=== PATIENT | female | born 1990 | race Caucasian/White ===

== ENCOUNTER 2019-02-14 18:26 | Emergency (ER) | payer SELFPAY ==
[~2019-02-14] VITALS: Ht 170.2 cm; Wt 72.7 kg
[2019-02-14 18:43] VITALS: BP 139/93
[2019-02-14] MEDS ORDERED: LIDOcaine 1% w/epiNEPHrine 1:200,000 30ml vial IM ONE (19:15)
[2019-02-14] MEDS ORDERED: TETanus/Pertussis (Acell)/Diphther VAC/PF (Tdap-Adult) 0.5ml syringe IM ONE (19:15)
[2019-02-14] MEDS ORDERED: bacitracin 15gm ointment TP ONE (20:35)
[2019-02-14] MEDS ORDERED: HYDR-3965 PO (20:36)
== END 2019-02-14 21:00 | disposition home or self-care (01) ==
LOC: ER 18:26
DX: S81.811A Laceration without foreign body, right lower leg, initial encounter (principal); S91.111A Laceration without foreign body of right great toe without damage to nail, initial encounter; W45.8XXA Other foreign body or object entering through skin, initial encounter; Y93.39 Activity, other involving climbing, rappelling and jumping off; Y92.89 Other specified places as the place of occurrence of the external cause; Y99.9 Unspecified external cause status
CPT/HCPCS: 12004; 90471; 99284

== ENCOUNTER 2019-02-19 09:35 | Emergency (ER) | payer SELFPAY ==
[~2019-02-19] VITALS: Ht 170.2 cm; Wt 0.7 kg
[2019-02-19 09:50] VITALS: BP 129/96
== END 2019-02-19 10:27 | disposition home or self-care (01) ==
LOC: ER 09:36
DX: S81.811D Laceration without foreign body, right lower leg, subsequent encounter (principal); S91.111D Laceration without foreign body of right great toe without damage to nail, subsequent encounter; W45.8XXD Other foreign body or object entering through skin, subsequent encounter
CPT/HCPCS: 99282

== ENCOUNTER 2025-02-10 18:34 | Inpatient (IN) | payer OTHER ==
[~2025-02-10] VITALS: Ht 170.2 cm; Wt 102.6 kg
--- NOTE | 2025-02-10 19:31 | Physician Documentation ---
History of Present Illness ~ Chief Complaint: Abdominal Pain Stated Complaint: SWELLING ABDOMINAL Time Seen by MD: 19:19 Mode of Arrival: POV HPI Patient presents to the emergency room for evaluation of abdominal distention and yellowing of skin. She reports that symptoms began a proximally three weeks ago. She has been taking some Tylenol for her discomfort along with some ibuprofen. Patient endorses drinking significant amount of alcohol daily and has been trying to taper off the last few weeks but states she continues to drank at nights a proximally 10 shots. She has noted alternating stool colors from yellow to dark brown. No problems urinating. She denies history of hepatitis or past medical history aside from history of ovarian cysts and col itis. Medication Reconciliation Allergies: Coded Allergies: No Known Allergies (Unverified , 02/10/25) Past Medical History Past Medical History: No Pertinent History Past Surgical History: noncontributory Drug Use: none Lives with: Family Lives In: Home Review of Systems ROS All review of systems negative except as per HPI Physical Exam Vital Signs: Temperature: 97.6, Source: Temporal, Heart Rate: 155, Respiratory Rate: 16, BP: 144/105, Pulse Oximetry: 99, Weight: 87.150 Physical Exam General: Patient is awake, alert, oriented x4 in no acute distress, jaundice Head: Normocephalic and atraumatic. Eyes: Scleral icterus noted. EOMI. PERRL. ENT: Mucous membranes moist. Neck: Supple, trachea is midline. Chest: Clear to auscultation bilaterally without rales, rhonchi, or wheezes. There is no accessory muscle use or retractions. Cardiac: Tachycardic and regular without murmurs, gallops, or rubs. Abd: Soft, noted distention with diffuse abdominal fullness and discomfort with palpation. No peritonitis Progress Results/Orders Results/Orders Orders - DARNELL HARRINGTON MD Electrocardiogram (02/10/25 ) Ct Abdomen Pelvis (02/10/25 19:21) Ultrasound Of Abdomen (02/10/25 19:21) Culture Blood (02/10/25 21:49) Page Hospitalist (02/10/25 23:50) Fill Out Med Reconciliation (02/10/25 23:50) Completed Orders - DARNELL HARRINGTON MD Hcg, Ur Ql (02/10/25 18:43) Cbc/Diff (02/10/25 18:43) BMP (02/10/25 18:43) Lipase (02/10/25 18:43) CMP (02/10/25 18:43) Procalcitonin (02/10/25 19:20) Ct Abdomen Pelvis (02/10/25 19:21) Ultrasound Of Abdomen (02/10/25 19:21) Ethanol (02/10/25 18:43) Thiamine Inj. (Thiamine Inj.) (02/10/25 19:35) Normal Saline 1000ml (0.9% Sodium Chlori (02/10/25 19:35) Acetaminophen (02/10/25 18:43) Ammonia (02/10/25 19:47) Man Diff (02/10/25 18:52) Ua W/Microscopic, Cult If Ind (02/10/25 20:29) Piperacillin/Tazo 3.375gm/50ml (Zosyn 3. (02/10/25 21:35) Direct Bili (02/10/25 18:52) Lacticsepsis (02/10/25 21:49) Morphine 4mg/Ml Inj. (Morphine Inj.) (02/10/25 22:00) Lactic,2hr (02/10/25 23:34) Medications Received in ER Medications (Trade) Dose Ordered Sig/Dick Route PRN Reason Start Time Stop Time Status Last Admin Dose Admin (thiamine inj.) 100 mg ONCE ONCE IV 02/10/25 19:35 02/10/25 19:36 DC 02/10/25 19:52 100 MG Sodium Chloride 1,000 ml @ 1,000 mls/hr ONCE ONCE IV 02/10/25 19:35 02/10/25 20:34 DC 02/10/25 19:49 1,000 MLS/HR Piperacillin/ Tazobactam/ Dextrose 50 ml @ 100 mls/hr ONCE ONCE IV 02/10/25 21:35 02/10/25 22:04 DC 02/10/25 21:56 100 MLS/HR (morphine inj.) 4 mg ONCE ONCE IV 02/10/25 22:00 02/10/25 22:01 DC 02/10/25 22:18 4 MG ([place] 10/325mg tab) 1 tab Q4H PRN PO SEVERE PAIN 7-10 02/11/25 00:35 02/11/25 01:01 1 TAB Sodium Chloride 1,000 ml @ 50 mls/hr Q20H IV 02/11/25 00:35 02/11/25 01:04 50 MLS/HR Vital Signs 02/10/25 02/10/25 02/10/25 02/10/25 18:40 19:04 19:56 21:33 Temp 97.6 Pulse 155 128 136 Resp 15 16 18 18 B/P (MAP) 144/105 134/84 (101) 144/83 (103) Pulse Ox 99 98 98 02/10/25 02/11/25 23:07 00:18 Pulse 135 138 Resp 16 16 B/P (MAP) 142/88 (106) 122/84 (97) Pulse Ox 97 98 Laboratory Tests Test 02/10/25 18:52 02/10/25 19:53 02/10/25 20:29 02/10/25 22:08 White Blood Count 32.9 *H Red Blood Count 3.28 L Hemoglobin 11.3 L Hematocrit 34.4 L Mean Corpuscular Volume 104.9 H Mean Corpuscular Hemoglobin 34.3 H Mean Corpuscular Hemoglobin Concent 32.7 L Red Cell Distribution Width 19.8 H Platelet Count 491 H Mean Platelet Volume 7.2 L Neutrophils (%) (Auto) 82.1 H Lymphocytes (%) (Auto) 11.6 L Monocytes (%) (Auto) 5.7 Eosinophils (%) (Auto) 0.2 Basophils (%) (Auto) 0.4 Neutrophils # (Auto) 27.0 H Lymphocytes # (Auto) 3.8 Monocytes # (Auto) 1.9 H Eosinophils # (Auto) 0.1 Basophils # (Auto) 0.1 CBC Comment Differential Total Cells Counted 100 Neutrophils % (Manual) 55 Band Neutrophils % 26 H Lymphocytes % (Manual) 12 L Monocytes % (Manual) 7 Platelet Estimate Increased Red Blood Cell Morphology Perf Polychromasia Few Hypochromasia 1+ Basophilic Stippling Anisocytosis 1+ Macrocytosis 1+ Target Cells 1+ Stomatocytes 1+ Sodium Level 130 L Potassium Level 3.2 L Chloride Level 92 L Carbon Dioxide Level 27.0 Anion Gap 11 Blood Urea Nitrogen 2 L Creatinine 0.59 Estimated GFR/1.73 m2 > 90 BUN/Creatinine Ratio 3.4 L Glucose Level 96 Calcium Level 7.9 L Total Bilirubin 7.2 H Direct Bilirubin 6.0 H Aspartate Amino Transf (AST/SGOT) 179 H Alanine Aminotransferase (ALT/SGPT) 50 Alkaline Phosphatase 537 H Total Protein 6.9 Albumin 1.6 L Globulin 5.3 H Albumin/Globulin Ratio 0.3 L Lipase 55 Procalcitonin 0.68 H Chemistry Comments Acetaminophen Level < 2.0 L Ethyl Alcohol Level 154 H Ammonia < 10 L Urine Specimen Description Cln catch midstream Urine Color Shyla Urine Clarity Clear Urine pH 6.5 Urine Specific [place] <=1.005 Urine Protein Trace Urine Glucose (UA) 100 H Urine Ketones Negative Urine Occult Blood Negative Urine Nitrite Negative Urine Bilirubin Large Urine Urobilinogen 4.0 H Urine Leukocyte Esterase Negative Urine RBC 0-2 Urine WBC 0-4 Urine Squamous Epithelial Cells Many Urine Transitional Epithelial Cells Few Urine Renal Cells Urine Bacteria 1+ Urine Mucus Few Urine Culture Indicated Not ind Volume Urine Centrifuged 10 ml Urine HCG, Qualitative Negative Urine Comment Lactic Acid Level 2.2 H Test 02/11/25 00:01 Lactic Acid Level 1.5 Microbiology Date/Time Source Procedure Growth Status 02/10/25 22:08 Blood Arm Left Blood Culture - Preliminary NEGATIVE (LESS THAN 24 HOURS) Resulted EKG/XRAY/CT/US/VASC/MRI EKG : Additional Comment EKG interpreted by myself shows time of 184, rate 149, sinus tachycardia, normal axis, no ST changes Medical Decision Making Findings Patient presented to the emergency room with right-sided abdominal pain as per HPI. Differentials include but are not limited to cholecystitis pancreatitis diverticulitis kidney stone therefore emergent labs and imaging indicated. Noted elevation of bilirubin and that has concern for possible obstructive process therefore ultrasound was ordered which showed no enlarged common bile duct and he had not feel patient is suffering from ascending cholangitis or other acute cholecystitis given ultrasound findings. IV antibiotics initiated. Consideration of spontaneous bacterial peritonitis however given ultrasound findings I do not believe this is the case. Departure Disposition: HOME / SELF CARE / HOMELESS Impression: Primary Impression: Acute cholecystitis Condition: Guarded Referrals: NO PRIMARY CARE PROVIDER (PCP) Signature Scribe Signature: No scribe Attestation: The note accurately reflects work and decisions made by me.Darnell Harrington MD 02/11/25 01:29 DARNELL HARRINGTON MD Feb 10, 2025 19:31
[2025-02-10 19:44] LABS: MEAN PLATELET VOLUME 7.2 FL (7.4-10.4); RED CELL DISTRIBUTION WIDTH 19.8 % (11.5-14.5)
[2025-02-10] MEDS: normal saline 1000ml 1,000 ML IV ONE (19:49)
[2025-02-10] MEDS: thiamine 100mg/ml 2ml inj. IV ONE (19:52)
[2025-02-10 20:09] LABS: BANDS% (MANUAL) 26 % (0-10); LYMPHOCYTES % (MANUAL) 12 % (21-51); MONOCYTES % (MANUAL) 7 % (2-12); NEUTROPHILS % (MANUAL) 55 % (42-75); PLATELET ESTIMATE INCREASED
[2025-02-10 20:24] LABS: CREATININE 0.59 MG/DL (0.40-0.90); ETHANOL 154 MG/DL (<10); TOTAL CARBON DIOXIDE 27.0 MMOL/L (24-32); eCRCL 132 ML/MIN; eGFR > 90 ML/MIN
[2025-02-10 20:52] LABS: LEUKOCYTE ESTERASE ,URINE NEGATIVE (Neg); NITRITES, URINE NEGATIVE (Neg); OCCULT BLOOD,URINE NEGATIVE (Neg)
[2025-02-10 20:53] LABS: UA COLLECTION TYPE CLN CATCH MIDSTREAM
[2025-02-10 20:54] LABS: URINE HCG NEGATIVE (NEG)
[2025-02-10 20:58] LABS: SQUAMOUS EPITHELIAL CELL,UR MANY /LPF (FEW)
[2025-02-10 20:59] LABS: MUCUS STRANDS FEW /LPF (Neg)
--- NOTE | 2025-02-10 21:23 | RADIOLOGY REPORT ---
EXAM: CT CT ABDOMEN PELVIS HISTORY: abd pain TECHNIQUE: Volumetric multidetector CT images of the abdomen and pelvis were obtained after the admin istration of intravenous contrast. All CT scans at this facility use dose modulation, iterative recon struction, and/or weight based dosing when appropriate to reduce radiation dose to as low as reasonab ly achievable. COMPARISON: None FINDINGS: [LOWER CHEST]: The partially visualized lung bases are clear without a pleural effusion. [LIVER]: Hepatomegaly. Diffuse hepatic steatosis [GALLBLADDER AND BILIARY TREE]: No cholelithiasis. [SPLEEN]: Unremarkable. [PANCREAS]: Unremarkable. [ADRENAL GLANDS]: Unremarkable [KIDNEYS]: No hydronephrosis. No nephroureterolithiasis. No suspicious focal lesion. [BLADDER]: Decompressed [REPRODUCTIVE ORGANS]: Unremarkable. [BOWEL/MESENTERY]: Stomach is normal. No CT evidence of bowel obstruction. normal appendix. Colon is decompressed. Question submucosal fat deposition however may be exaggerated along the colon secondary to decompression. [ASCITES]: Small volume ascites. Mesenteric congestion [LYMPHADENOPATHY]: No pathologically enlarged lymph nodes by CT size criteria [VASCULATURE]: No aneurysmal dilatation. [ABDOMINAL WALL]: Unremarkable. [MUSCULOSKELETAL]: No acute fracture or aggressive focal osseous lesion. IMPRESSION: 1. Hepatomegaly with hepatic steatosis in appearance of third-spacing as manifested by pericholecysti c/intramural edema and ascites. 2. Correlate with clinical exam and laboratory values for liver dysfunction 3. Colon is diffusely decompressed with submucosal fat deposition, which may be exaggerated secondary to decompression however chronic inflammation not excluded.
[2025-02-10] MEDS: piperacillin/tazo 3.375gm/50ml 50 ML IV ONE (21:56)
[2025-02-10] MEDS: morphine 4 MG/ML inj SYRINge IV ONE (22:18)
[2025-02-11] VITALS (9 sets, daily range): BP systolic 100–135; BP diastolic 57–80; PULSE 93–150; RESP 16–20; TEMP 97.6–98.6; O2SAT 97–99
--- NOTE | 2025-02-11 00:31 | RADIOLOGY REPORT ---
INDICATION: abd pain TECHNIQUE: Multiple real-time sonographic images were obtained of the right upper quadrant. COMPARISON: Same day CT abdomen/pelvis FINDINGS: The liver demonstrates homogeneously increased echogenicity without focal mass lesions. The liver me asures 24.7 cm. There is no intrahepatic or extrahepatic ductal dilatation. The common duct measures 5 mm. The gallbladder not distended. No visualized stone or sludge. The gallbladder wall measures 5 mm and is within normal limits. Reportedly positive sonographic Hanson's sign. The right kidney measures 10.4 cm. No visualized hydronephrosis, stone, or lesion. The pancreas is not well visualized due to overlying bowel gas. Moderate circumferential perihepatic ascites. IMPRESSION: 1. Gallbladder wall thickening and reportedly positive sonographic Hanson's sign, however no evidence of biliary stones/sludge and nondistended gallbladder. Findings are most likely due to congestive h epatopathy as seen on comparison CT, and acute cholecystitis is less favored than alternative etiolog ies for right upper quadrant pain. 2. Hepatic steatosis/fibrosis.
[2025-02-11] MEDS ORDERED: magnesium Cl slow-release 64mg tablet PO PRN (00:35)
[2025-02-11] MEDS ORDERED: potassium Cl 20 mEq SR tablet PO PRN (00:35)
[2025-02-11] MEDS ORDERED: potassium Cl 40MEQ/1/2NS 520ml 520 ML IV PRN (00:35)
[2025-02-11] MEDS ORDERED: magnesium sulf-water 4G/100mL 100 ML IV PRN (00:35)
[2025-02-11] MEDS ORDERED: magnesium sulf-water 2g/50mL 50 ML IV PRN (00:35)
[2025-02-11] MEDS ORDERED: ondansetron/PF 4mg/2ml inj IV PRN (00:35)
[2025-02-11] MEDS ORDERED: dextrose 50%-water 50ml dispensing syringe IV PRN (00:35)
[2025-02-11] MEDS ORDERED: magnesium hydroxide 30ml (MOM) UD suspension PO PRN (00:35)
[2025-02-11] MEDS ORDERED: mag hydrox/Alum hydrox/simeth 30ml oral suspension PO PRN (00:35)
[2025-02-11] MEDS: HYDROcodone/acetaminophen 10/325mg tab PO PRN (01:01)
[2025-02-11] MEDS: normal saline 1000ml 1,000 ML IV SCH (01:04)
--- NOTE | 2025-02-11 01:18 | HISTORY AND PHYSICAL-Residence ---
History & Physical Providers to CC Resident Creating Document: RIAN SAUCEDA RES ~ History of Present Illness Reason for Admit\Complaint: Abdominal pain and distention History of Present Illness This is a 35-year-old female with past medical history alcohol use disorder (1300 mL of vodka a day) who came to the ER with complaints of abdominal pain and bloating since three weeks. She explained that all of these symptoms started after she got back on her alcohol consumption. She experienced progressive abdominal bloating in the past 3 weeks such that her abdomen is twice the size now associated with bilateral pitting pedal edema. Associated with abdominal pain in the epigastric and right upper quadrant region. She rates the pain as 8/10, dull ache, nonradiating, associated with medication, no aggravating factors with food consumption. She had to change her diet from solid to liquid in view of progressive distention and nausea. She has also noticed yellowish discoloration of her sclera and skin since the past 3 weeks. No symptoms of vomiting, diarrhea/constipation, change in the color of the stools, no urinary symptoms, not on any control, no weight loss. Allergies: Coded Allergies: No Known Allergies (Unverified , 02/10/25) Home Medications Home Medications Active Past Medical History Past Medical History Nothing significant Past Surgical History Surgical History Comment None Past Social History Smoking: Quit greater than 1 year (Quit smoking more than 10 years ago. 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) Domestic Violence: Neg ROS Constitutional: Reports: weakness Eyes: Reports: no symptoms reported ENT: Reports: no symptoms reported Respiratory: Reports: pain with breathing Cardiovascular: Reports: no symptoms reported Gastrointestinal: Reports: abdomen distended, abdominal pain, nausea Genitourinary: Reports: no symptoms reported Female Genitalia: Reports: no reported symptoms Neurological: Reports: no symptoms reported Musculoskeletal: Reports: no symptoms reported Integumentary: Reports: no symptoms reported Allergic/Immunologic: Reports: no symptoms reported Hematologic/Lymphatic: Reports: no symptoms reported Endocrine: Reports: no symptoms reported Psychiatric: Reports: no symptoms reported Unable to obtain: altered mental status Exam Vitals: Vital Signs Date Time Temp Pulse Resp B/P (MAP) Pulse Ox O2 Delivery O2 Flow Rate FiO2 02/11/25 00:18 138 16 122/84 (97) 98 02/10/25 18:40 97.6 General: General: Well alert, well oriented, not confused, not agitated, not in acute distress, well cooperated during the physical. HEENT: Conjunctive are pink, icteric sclera, pupil is equal in both sides, reactive to light, no ear discharge, no pharyngeal erythema or an edema. Neck: Supple, no JVD, no lymphadenopathy and thyromegaly. Chest: Equal air entry on both lungs, no added sounds, no wheeze. Cardiovascular: S1-S2 regular sinus rhythm and, regular rate, no gallops, no rubs, no murmurs Abdomen: Abdomen distended, rigid on palpation, tenderness in epigastric and right upper quadrant on deep palpation, Bowel sounds present on auscultation. No distended vein. Extremities: No obvious deformities, bilateral 2+ pitting edema bilaterally, capillary refill intact, peripheral pulsations are intact on both sides Central Nervous System: No focal neurological deficits, no motor or sensory weakness in all 4 extremities, could move all 4 extremities, 2+ deep tendon reflexes, negative Babinski. Musculoskeletal: No joint swelling, deformities, inflammations, and no scoliosis and back tenderness Skin: Warm and dry. Diagnostic Data Last Recorded Lab Results: 02/10/25185102/10/251851 Counseling Services Smoking & Tobacco Cessation: N/A Advance Care Planning Advanced Care plannin - 30 Minutes (Full code) Additional Plan Assessment: This is a 35-year-old female with no significant past medical history who came to the ER with complaints of abdominal pain and bloating since three weeks. She explained that all of these symptoms started after she got back on her alcohol consumption. Plan: Acalculous cholecystitis Right upper quadrant pain, abdominal distention, yellow discoloration of sclerae. Patient met severe sepsis criteria (heart rate> 90, WBC> 05791, lactic acidosis, source of infection) Vitals: Heart rate 140s, due to pain. Blood pressure 120/80 WBC 32.9, procalcitonin 0.68, lactic acid 2.2 Ultrasound of abdomen: 1. Gallbladder wall thickening and reportedly positive sonographic Hanson's sign, however no evidence of biliary stones/sludge and nondistended gallbladder. Findings are most likely due to congestive hepatopathy as seen on comparison CT, and acute cholecystitis is less favored than alternative etiologies for right upper quadrant pain. 2. Hepatic steatosis/fibrosis. Abdomen and pelvis CT:1. Hepatomegaly with hepatic steatosis in appearance of third-spacing as manifested by pericholecystic/intramural edema and ascites. 2. Correlate with clinical exam and laboratory values for liver dysfunction 3. Colon is diffusely decompressed with submucosal fat deposition, which may be exaggerated secondary to decompression however chronic inflammation not excluded. Alkaline phosphatase 537, AST 179, ALT 50 Plan: Ordered CRP, ESR, lipid panel, hemoglobin A1c Hydration with 100 mL/hour IV fluids Started Zosyn 4.5 g IV q.8h Surgery opinion to be taken tomorrow Pain controlled with morphine/[place] p.r.n. Acute alcoholic steatohepatitis History of heavy alcohol use disorder AST > ALT (ratio > 1.5), elevated bilirubin -7.2 and alk-phos, albumin 1.5 Marked leukocytosis, macrocytic anemia Ultrasound and CT scan shows hepatitis Meets criteria for alcoholic hepatitis PT 13.1, INR 1.3 Og's Discriminant Functin (MDF) -12.3 and MELD-22 Started prednisolone 40 mg p.o. daily Consider GI consultation in the morning. 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 Code status: Full code DVT prophylaxis: SCDs Analgesia/sedation: Morphine/[place] p.r.n. Line/tube: PIV GI prophylaxis: Protonix Nutrition: Regular diet PT: Ordered. Prognosis: Guarded Disposition: Admit to estrada Sauceda MD PGY1, Internal Medicine [facility] Case reviewed and discussed with SS: History of heavy alcohol use disorder AST > ALT (ratio > 1.5), elevated bilirubin and alk-phos, albumin 1.5 Marked leukocytosis, macrocytic anemia U/S; hepatic steatosis Meets criteria for alcoholic hepatitis Ordered coagulation profile; INR, PT. Calculate Maddrey's Discriminant Functin (MDF) and MELD; consider glucocorticoid therapy/methylprednisolone if score more than 20 Tera Morton Internal Medicine Resident Patient seen and evaluated using HIPAA compliant audio visual aid. I agree with the assessment and plan by the resident. Critical Care time 60 mins Neelima Sotelo MD Critical Care Date of Service: Feb 11, 2025 Billing Provider: NEELIMA SOTELO MD, SHIVANI, [facility] Feb 11, 2025 01:18 TERA MORTON, JB Feb 11, 2025 02:14 NEELIMA SOTELO MD Feb 14, 2025 19:32
[2025-02-11] MEDS: potassium Cl 20 mEq SR tablet PO PRN (02:34)
[2025-02-11 02:35] LABS: OSMOLALITY 276 MOSM/K (280-300)
[2025-02-11 02:38] LABS: LDL CHOLESTEROL 250 MG/DL (50-100)
[2025-02-11 02:39] LABS: CHOL/HDL RATIO 24.7 (0.00-4.99)
[2025-02-11 02:53] LABS: % IRON SATURATION 28 % (11-46)
[2025-02-11 02:57] LABS: APTT 30 SECONDS (22-32); INR 1.3 INR
[2025-02-11] MEDS: albumin (human) 25% 100 ML IV solution IV ONE (03:03)
[2025-02-11] MEDS: diazepam inj 5 MG/ML inj. IV PRN (03:14)
[2025-02-11] MEDS ORDERED: IBUP-1986 PO (03:36)
[2025-02-11] MEDS ORDERED: ACET-2615 PO (03:36)
[2025-02-11] MEDS ORDERED: SIME125C43 PO (03:36)
[2025-02-11] MEDS ORDERED: DIPH-964 PO (03:36)
[2025-02-11 04:11] LABS: BF RBC COUNT 153 /CU MM; BF WBC COUNT 131 /CU MM (0-1000); BFSOURCE PERITONEAL FLD; BFVOLUME 800 ML
--- NOTE | 2025-02-11 05:41 | ELECTROCARDIOGRAPH REPORT ---
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
[2025-02-11] MEDS: pantoprazole 40mg Tablet.DR PO SCH (07:11)
[2025-02-11] MEDS: docusate sod 100mg capsule PO SCH (07:12)
[2025-02-11] MEDS: folic acid 1mg/0.2ml inj IV SCH (07:20)
[2025-02-11] MEDS: thiamine 100mg/ml 2ml inj. IV SCH (07:20)
[2025-02-11] MEDS: piperacillin/tazo 4.5gm/100ml 100 ML IV SCH (07:20)
[2025-02-11] MEDS: K and/or MAG REPLACEMENT MC SCH (08:00)
[2025-02-11] MEDS ORDERED: prednisoLONE 15mg/5ml oral solution 5ml cup PO SCH (08:00)
[2025-02-11 09:03] LABS: MEAN PLATELET VOLUME 7.2 FL (7.4-10.4); RED CELL DISTRIBUTION WIDTH 19.0 % (11.5-14.5)
[2025-02-11 09:20] LABS: CREATININE 0.52 MG/DL (0.40-0.90); TOTAL CARBON DIOXIDE 28.3 MMOL/L (24-32); eCRCL 150 ML/MIN; eGFR > 90 ML/MIN
[2025-02-11 09:25] LABS: BANDS% (MANUAL) 17.0 % (0-10); LYMPHOCYTES % (MANUAL) 9.0 % (21-51); METAMYLEOCYTES% (MANUAL) 2.0 % (0-0); MONOCYTES % (MANUAL) 7.0 % (2-12); NEUTROPHILS % (MANUAL) 65.0 % (42-75)
[2025-02-11 09:28] LABS: PLATELET ESTIMATE NORMAL
[2025-02-11] MEDS: diazepam inj 5 MG/ML inj. IV ONE (09:30)
[2025-02-11 09:55] LABS: BFAPPEAR HAZY; BFCOLOR YELLOW; LYMPHOCYTES,BODY FLUID 19 %; MONOCYTES,BODY FLUID 68 %; NEUTROPHILS,BODY FLUID 13 %
[2025-02-11 09:56] LABS: BF MESOTHELIAL CELLS FEW
[2025-02-11] MEDS ORDERED: pantoprazole 40MG/NS 100ML BAG 100 ML IV SCH (20:00)
--- NOTE | 2025-02-11 20:06 | PROGRESS NOTE ---
Daily Progress Note Providers to CC ~ Antibiotic Timeout Antibiotic Ordered?: Yes Subjective When I came onto service the patient has heart rate was in the 130s to 150s and had only received 5 mg of IV diazepam for several hours- I promptly gave the patient 10 mg of IV diazepam and spoke to the patient's RN today and the heart rate now is improved and currently is 109. The patient is alert and oriented and a white blood cell count is downtrending. The patient does have significant abdominal distention however this is improved from the diagnostic paracentesis with 3 L were drained in the ED. Objective Vital Signs Date Time Temp Pulse Resp B/P (MAP) Pulse Ox O2 Delivery O2 Flow Rate FiO2 02/11/25 18:30 109 02/11/25 18:00 97.6 16 105/66 (79) 98 Room Air 02/11/25 03:39 0 21 Result Diagram: 02/11/25 0509 02/11/25 0509 Gen. No acute distress alert and oriented 4 Lungs clear to ascultation bilaterally, no wheezes rales or rhonchi appreciated Heart normal sinus rhythm no murmurs rubs or clicks noted Abdomen soft mildly distended, nontender, bowel sounds are normoactive Lower extremities no clubbing cyanosis, nor edema appreciated bilaterally Coagulation Studies Laboratory Tests Test 02/11/25 02:39 Prothrombin Time 13.1 SECONDS (9.0-12.0) H INR International Normalized Ratio 1.3 INR Activated Partial Thromboplast Time 30 SECONDS (22-32) Coagulation Comments Problem\Assessment\Plan Problems/Diagnosis: (1) Acute cholecystitis # severe alcohol withdrawal- # alcohol use disorder Improving with better management by nursing staff IV diazepam 5 mg every hour as needed IV lorazepam 2 mg every 15 minutes as needed P.o. lorazepam 2 mg every hour as needed Scheduled Librium 50 mg q.i.d.. Substance use navigator Landy Reddy consult is ordered # acute acalculous cholecystitis # sepsis secondary to cholecystitis IV Zosyn IV fluids are administered # acute alcoholic hepatitis On 40 mg of p.o. prednisone Monitor daily CMP # anemia of chronic disease # macrocytic anemia Transfuse if hemoglobin is below seven IV Protonix 40 mg b.i.d. Stool for Hemoccult # hypokalemia On potassium replacement protocol Monitor daily labs I spent 50 minutes of critical care time treating this patient on 02/11/2025 Date of Service: Feb 11, 2025 Billing Provider: DIDIER COLON DO Common Visit Codes: [id number] CARE 30-74 MIN DIDIER COLON DO Feb 11, 2025 20:05
[2025-02-12 05:50] LABS: MEAN PLATELET VOLUME 7.3 FL (7.4-10.4); RED CELL DISTRIBUTION WIDTH 19.4 % (11.5-14.5)
[2025-02-12 06:00] VITALS: BP 97/61; PULSE 104; RESP 16; TEMP 98.1; O2SAT 100
[2025-02-12 06:15] LABS: CREATININE 0.67 MG/DL (0.40-0.90); TOTAL CARBON DIOXIDE 28.4 MMOL/L (24-32); eCRCL 116 ML/MIN; eGFR > 90 ML/MIN
[2025-02-12 08:00] VITALS: RESP 16; O2SAT 100
[2025-02-12 10:00] VITALS: BP 110/68; PULSE 115; RESP 15; TEMP 97.6; O2SAT 98
[2025-02-12 11:11] LABS: HBSAG SCREEN Negative (Negative); HEP B CORE AB, IGM Negative (Negative); HEP B CORE AB, TOT Negative (Negative)
--- NOTE | 2025-02-12 17:33 | PROGRESS NOTE ---
Daily Progress Note Providers to CC ~ Antibiotic Timeout Antibiotic Ordered?: Yes Subjective The patient feels better today though her abdomen is getting more distended. Her liver function tests are improving in her DTs are improving as well as monitor by her vital signs the patient does not exhibit any tremors Objective Vital Signs Date Time Temp Pulse Resp B/P (MAP) Pulse Ox O2 Delivery O2 Flow Rate FiO2 02/12/25 10:00 97.6 115 15 110/68 (82) 98 Room Air 02/11/25 20:00 0.0 21 Result Diagram: 02/12/25 0505 02/12/25 0505 Gen. No acute distress alert and oriented 4 Lungs clear to ascultation bilaterally, no wheezes rales or rhonchi appreciated Heart normal sinus rhythm no murmurs rubs or clicks noted Abdomen soft mildly distended, nontender, bowel sounds are normoactive Lower extremities no clubbing cyanosis, nor edema appreciated bilaterally Coagulation Studies Laboratory Tests Test 02/11/25 02:39 Prothrombin Time 13.1 SECONDS (9.0-12.0) H INR International Normalized Ratio 1.3 INR Activated Partial Thromboplast Time 30 SECONDS (22-32) Coagulation Comments Problem\Assessment\Plan Problems/Diagnosis: (1) Acute cholecystitis # severe alcohol withdrawal- # alcohol use disorder Improving with better management by nursing staff IV diazepam 5 mg every hour as needed IV lorazepam 2 mg every 15 minutes as needed P.o. lorazepam 2 mg every hour as needed Scheduled Librium 50 mg q.i.d.. Substance use navigator Landy Reddy consult is ordered 02/12 DTs are improving vital signs are improving # acute acalculous cholecystitis # sepsis secondary to cholecystitis IV Zosyn IV fluids are administered 02/12 white blood cell count is downtrending # ascites # acute alcoholic hepatitis On 40 mg of p.o. prednisone Monitor daily CMP Status post diagnostic paracentesis in the ED with 3 L were drained 02/12 liver function tests are improving- will likely require serial paracentesis # anemia of chronic disease # macrocytic anemia Transfuse if hemoglobin is below seven IV Protonix 40 mg b.i.d. Stool for Hemoccult # hypokalemia On potassium replacement protocol Monitor daily labs I spent 50 minutes of critical care time treating this patient on 02/11/2025 Date of Service: Feb 12, 2025 Billing Provider: DIDIER COLON DO Common Visit Codes: [id number] INP/OBS CARE(HIGH) DIDIER COLON DO Feb 12, 2025 17:33
[2025-02-12 18:00] VITALS: BP 112/65; PULSE 97; RESP 16; TEMP 98.1; O2SAT 98
[2025-02-12 22:00] VITALS: BP 115/79; PULSE 111; RESP 16; TEMP 97.3; O2SAT 100
[2025-02-13] VITALS (8 sets, daily range): BP systolic 108–121; BP diastolic 62–67; PULSE 100–132; RESP 14–22; TEMP 97.2–98.1; O2SAT 98–100
[2025-02-13 06:22] LABS: MEAN PLATELET VOLUME 7.0 FL (7.4-10.4); RED CELL DISTRIBUTION WIDTH 20.4 % (11.5-14.5)
[2025-02-13 06:31] LABS: CREATININE 0.48 MG/DL (0.40-0.90); TOTAL CARBON DIOXIDE 27.7 MMOL/L (24-32); eCRCL 162 ML/MIN; eGFR > 90 ML/MIN
[2025-02-13 07:34] LABS: PLATELET ESTIMATE NORMAL
[2025-02-13] MEDS: diazepam inj 5 MG/ML inj. IV ONE ×2 (09:05→11:37)
[2025-02-13 09:20] LABS: OCCULT BLOOD STOOL NEGATIVE (Neg)
--- NOTE | 2025-02-13 17:41 | PROGRESS NOTE ---
Daily Progress Note Providers to CC ~ Antibiotic Timeout Antibiotic Ordered?: Yes Subjective The patient is abdomen is getting more distended and tender- the patient became tachycardic again today and required a couple of additional doses of IV diazepam I will increase the patient is scheduled Librium 200 mg q.i.d. Objective Vital Signs Date Time Temp Pulse Resp B/P (MAP) Pulse Ox O2 Delivery O2 Flow Rate FiO2 02/13/25 15:52 109 02/13/25 10:00 97.4 14 121/62 (81) 100 Room Air 02/12/25 20:00 0.0 21 Result Diagram: 02/13/25 0459 02/13/25 0503 Gen. No acute distress alert and oriented 4 Lungs clear to ascultation bilaterally, no wheezes rales or rhonchi appreciated Heart normal sinus rhythm no murmurs rubs or clicks noted Abdomen soft significantly distended, moderate to significant generalized tenderness, bowel sounds are normoactive Lower extremities no clubbing cyanosis, nor edema appreciated bilaterally Coagulation Studies Laboratory Tests Test 02/11/25 02:39 Prothrombin Time 13.1 SECONDS (9.0-12.0) H INR International Normalized Ratio 1.3 INR Activated Partial Thromboplast Time 30 SECONDS (22-32) Coagulation Comments Problem\Assessment\Plan Problems/Diagnosis: (1) Acute cholecystitis # severe alcohol withdrawal- # alcohol use disorder Improving with better management by nursing staff IV diazepam 5 mg every hour as needed IV lorazepam 2 mg every 15 minutes as needed P.o. lorazepam 2 mg every hour as needed Scheduled Librium 50 mg q.i.d.. Substance use navigator Landy Reddy consult is ordered 02/12 DTs are improving vital signs are improving 02/13 the patient required two doses of 10 mg IV diazepam today- increase Librium to 100 mg q.i.d. # acute acalculous cholecystitis # sepsis secondary to cholecystitis IV Zosyn IV fluids are administered 02/12 white blood cell count is downtrending # ascites # acute alcoholic hepatitis On 40 mg of p.o. prednisone Monitor daily CMP Status post diagnostic paracentesis in the ED with 3 L were drained 02/12 liver function tests are improving- will likely require serial paracentesis 02/13 ascites is worsening, we will order a therapeutic paracentesis if the patient remains hospitalized on 02/15/2025 when angio nurse is available to assist Dr. Monzon # anemia of chronic disease # macrocytic anemia Transfuse if hemoglobin is below seven IV Protonix 40 mg b.i.d. Stool for Hemoccult # hypokalemia On potassium replacement protocol Monitor daily labs I spent 50 minutes of critical care time treating this patient on 02/11/2025 Date of Service: Feb 13, 2025 Billing Provider: DIDIER COLON DO Common Visit Codes: [id number] INP/OBS CARE(HIGH) DIDIER COLON DO Feb 13, 2025 17:41
[2025-02-14 06:00] VITALS: BP 104/67; PULSE 94; RESP 16; TEMP 97.6; O2SAT 100
[2025-02-14 07:08] LABS: MEAN PLATELET VOLUME 7.1 FL (7.4-10.4); RED CELL DISTRIBUTION WIDTH 20.8 % (11.5-14.5)
[2025-02-14 07:14] LABS: CREATININE 0.59 MG/DL (0.40-0.90); TOTAL CARBON DIOXIDE 25.7 MMOL/L (24-32); eCRCL 132 ML/MIN; eGFR > 90 ML/MIN
[2025-02-14] MEDS ORDERED: potassium Cl 40MEQ/1/2NS 520ml 520 ML IV PRN ×2 (08:40→17:25)
[2025-02-14] MEDS ORDERED: potassium Cl 20 mEq SR tablet PO PRN ×3 (08:40→17:25)
[2025-02-14 08:51] LABS: BANDS% (MANUAL) 5.0 % (0-10); LYMPHOCYTES % (MANUAL) 2.0 % (21-51); MONOCYTES % (MANUAL) 1.0 % (2-12); NEUTROPHILS % (MANUAL) 92.0 % (42-75)
[2025-02-14 08:54] LABS: LARGE PLATELETS FEW
[2025-02-14 08:55] LABS: PLATELET ESTIMATE NORMAL
[2025-02-14 10:00] VITALS: BP 136/73; PULSE 72; RESP 15; TEMP 98.4; O2SAT 95
[2025-02-14] MEDS: potassium Cl 20 mEq SR tablet PO PRN (10:40)
[2025-02-14] MEDS ORDERED: magnesium sulf-water 2g/50mL 50 ML IV PRN (17:25)
[2025-02-14] MEDS ORDERED: magnesium sulf-water 4G/100mL 100 ML IV PRN (17:25)
--- NOTE | 2025-02-14 17:28 | PROGRESS NOTE ---
Daily Progress Note Providers to CC ~ Antibiotic Timeout Antibiotic Ordered?: Yes Subjective The patient's tachycardia and DTs are improved significantly with increasing Librium scheduled to 75 mg q.i.d.- the patient is white blood cell count however is up trending and her ascites is worsening as well as her abdominal discomfort. A therapeutic paracentesis is ordered for the a.m. Objective Vital Signs Date Time Temp Pulse Resp B/P (MAP) Pulse Ox O2 Delivery O2 Flow Rate FiO2 02/14/25 10:49 18 02/14/25 10:00 98.4 72 136/73 (94) 95 Room Air 02/12/25 20:00 0.0 21 Result Diagram: 02/14/25 0632 02/14/25 0632 Gen. No acute distress alert and oriented 4 Lungs clear to ascultation bilaterally, no wheezes rales or rhonchi appreciated Heart normal sinus rhythm no murmurs rubs or clicks noted Abdomen soft significantly distended, moderate to significant generalized tenderness, bowel sounds are normoactive Lower extremities no clubbing cyanosis, nor edema appreciated bilaterally Coagulation Studies Laboratory Tests Test 02/11/25 02:39 Prothrombin Time 13.1 SECONDS (9.0-12.0) H INR International Normalized Ratio 1.3 INR Activated Partial Thromboplast Time 30 SECONDS (22-32) Coagulation Comments Problem\Assessment\Plan Problems/Diagnosis: (1) Acute cholecystitis # severe alcohol withdrawal- # alcohol use disorder Improving with better management by nursing staff IV diazepam 5 mg every hour as needed IV lorazepam 2 mg every 15 minutes as needed P.o. lorazepam 2 mg every hour as needed Scheduled Librium 50 mg q.i.d.. Substance use navigator Landy Reddy consult is ordered 02/12 DTs are improving vital signs are improving 02/13 the patient required two doses of 10 mg IV diazepam today- increase Librium to 75 mg q.i.d. 02/14 the patient is DTs and vital signs are improved with increased Librium dosing. # acute acalculous cholecystitis # sepsis secondary to cholecystitis IV Zosyn IV fluids are administered 02/12 white blood cell count is downtrending 02/14 white blood cell count has a up trended however the patient is afebrile continue monitor daily CBC # ascites # acute alcoholic hepatitis On 40 mg of p.o. prednisone Monitor daily CMP Status post diagnostic paracentesis in the ED with 3 L were drained 02/12 liver function tests are improving- will likely require serial paracentesis 02/13 ascites is worsening, we will order a therapeutic paracentesis if the patient remains hospitalized on 02/15/2025 when angio nurse is available to assist Dr. Monzon 02/14 ascites continues to worsen- a therapeutic paracentesis is ordered for tomorrow # anemia of chronic disease # macrocytic anemia Transfuse if hemoglobin is below seven IV Protonix 40 mg b.i.d. Stool for Hemoccult 02/14 hemoglobin is improving continue monitor # hypokalemia On potassium replacement protocol Monitor daily labs I spent 50 minutes of critical care time treating this patient on 02/11/2025 Date of Service: Feb 14, 2025 Billing Provider: DIDIER COLON DO Common Visit Codes: [id number] INP/OBS CARE(HIGH) DIDIER COLON DO Feb 14, 2025 17:28
[2025-02-14 18:00] VITALS: BP 123/61; PULSE 76; RESP 15; TEMP 97.3; O2SAT 100
[2025-02-14] MEDS: lactose-reduced food (Ensure Enlive) - 237ml bottle PO SCH (18:52)
[2025-02-14 19:00] VITALS: O2SAT 14
[2025-02-14 20:00] VITALS: RESP 15; O2SAT 99
[2025-02-14] MEDS ORDERED: K and/or MAG REPLACEMENT MC SCH (20:00)
[2025-02-14 22:00] VITALS: BP 109/65; PULSE 104; RESP 15; TEMP 96.3; O2SAT 99
[2025-02-15 05:34] LABS: MEAN PLATELET VOLUME 7.0 FL (7.4-10.4); RED CELL DISTRIBUTION WIDTH 21.1 % (11.5-14.5)
[2025-02-15 06:00] VITALS: BP 108/63; PULSE 103; RESP 15; TEMP 97.2; O2SAT 99
[2025-02-15 06:07] LABS: CREATININE 0.66 MG/DL (0.40-0.90); TOTAL CARBON DIOXIDE 27.8 MMOL/L (24-32); eCRCL 118 ML/MIN; eGFR > 90 ML/MIN
--- NOTE | 2025-02-15 07:57 | RADIOLOGY REPORT ---
CHEST RADIOGRAPH Indication: sepsis Technique: Single frontal view of the chest was obtained COMPARISON: None FINDINGS: Lines and Tubes: None Lungs: Increased interstitial prominence. Low lung volumes. Pleura: No effusion. No pneumothorax. Cardiomediastinal contours: Unremarkable Bones: Unremarkable IMPRESSION: Increased interstital prominence. This may represent pulmonary vascular congestion and/or viral pneum onia. Clinical correlation advised.
[2025-02-15 08:00] VITALS: RESP 20
[2025-02-15 08:20] LABS: INR 1.3 INR
[2025-02-15 10:00] VITALS: BP 119/68; PULSE 134; RESP 29; TEMP 96.7; O2SAT 100
--- NOTE | 2025-02-15 11:18 | PROGRESS NOTE ---
Daily Progress Note Providers to CC ~ Antibiotic Timeout Antibiotic Ordered?: Yes Subjective No acute events overnight. Patient examined at bedside. No new complaints, not in acute distress. Patient denies chest pain, sob, palpitations, n/v/d. Tele sinus in 110s. Reports abdominal pain. Paracentesis ordered and patient was evaluated by Dr. Antoine, monitor for now. Start Lasix, continue spironolactone. Objective Vital Signs Date Time Temp Pulse Resp B/P (MAP) Pulse Ox O2 Delivery O2 Flow Rate FiO2 02/15/25 06:00 103 02/15/25 06:00 97.2 15 108/63 (78) 99 Room Air 02/14/25 20:00 0.0 21 Result Diagram: 02/15/25 0514 02/15/25 0514 Physical Exam General: Generalized weakness, A&Ox 3, NAD HEENT: Normocephalic, PERRLA Neck: Supple, trachea midline, no JVD Chest: Clear to auscultation bilaterally Cardiovascular: RRR, S1&S2 GI: Tenderness in all four quadrants, negative rebound tenderness, distended Extremities: No cyanosis/clubbing/or edema GRADALL OPERATOR: CN II-XII intact, no focal deficits Musculoskeletal: No paraspinal muscle tenderness, no muscle spasm Skin: Warm and intact Coagulation Studies Laboratory Tests Test 02/11/25 02:39 02/15/25 07:43 Activated Partial Thromboplast Time 30 SECONDS (22-32) Prothrombin Time 13.1 SECONDS (9.0-12.0) H INR International Normalized Ratio 1.3 INR Coagulation Comments Problem\Assessment\Plan Problems/Diagnosis: (1) Acute cholecystitis # severe alcohol withdrawal # alcohol use disorder -scheduled Librium 02/12 DTs are improving vital signs are improving 02/13 the patient required two doses of 10 mg IV diazepam today- increase Librium to 75 mg q.i.d. 02/14 the patient is DTs and vital signs are improved with increased Librium dosing. 02/15 paracentesis not indicated, patient evaluated by Dr. Antoine, with recommendation to monitor for now # Cholecystitis- ruled out # Sepsis 2/2 CAP- presence on admission clinically undeterminable -02/15: continue Zosyn, start Zithromax # ascites # Hypoalbuminemia # acute alcoholic hepatitis On 40 mg of p.o. prednisone Monitor daily CMP Status post diagnostic paracentesis in the ED with 3 L were drained 02/12 liver function tests are improving- will likely require serial paracentesis 02/13 ascites is worsening, we will order a therapeutic paracentesis if the patient remains hospitalized on 02/15/2025 when angio nurse is available to assist Dr. Monzon 02/14 ascites continues to worsen- a therapeutic paracentesis is ordered for tomorrow # anemia of chronic disease # macrocytic anemia Transfuse if hemoglobin is below seven IV Protonix 40 mg b.i.d. Stool for Hemoccult 02/14 hemoglobin is improving continue monitor 02/15 Start Lasix, continue spironolactone. Para not indicated per Dr. Antoine who evaluated the patient. # hypokalemia On potassium replacement protocol Monitor daily labs Date of Service: Feb 15, 2025 Billing Provider: GREGORY HASTINGS Common Visit Codes: [id number] INP/OBS CARE(HIGH) GREGORY HASTINGS Feb 15, 2025 11:18
[2025-02-15] MEDS: azithromycin/NS 500mg/250ml 250 ML IV ONE (13:10)
[2025-02-15 18:00] VITALS: BP 114/61; PULSE 113; RESP 15; TEMP 97.2; O2SAT 98
[2025-02-15 20:00] VITALS: RESP 15; O2SAT 98
[2025-02-15 22:00] VITALS: BP 110/64; PULSE 98; RESP 15; TEMP 97.8; O2SAT 98
[2025-02-16 05:27] LABS: MEAN PLATELET VOLUME 7.0 FL (7.4-10.4); RED CELL DISTRIBUTION WIDTH 20.8 % (11.5-14.5)
[2025-02-16 05:58] LABS: CREATININE 0.58 MG/DL (0.40-0.90); TOTAL CARBON DIOXIDE 26.7 MMOL/L (24-32); eCRCL 134 ML/MIN; eGFR > 90 ML/MIN
[2025-02-16 06:00] VITALS: BP 103/53; PULSE 102; RESP 15; TEMP 96.6; O2SAT 96
[2025-02-16] MEDS: azithromycin/NS 500mg/250ml 250 ML IV SCH (08:10)
[2025-02-16 08:27] VITALS: BP 118/59; PULSE 119
--- NOTE | 2025-02-16 14:39 | PROGRESS NOTE ---
Daily Progress Note Providers to CC ~ Antibiotic Timeout Antibiotic Ordered?: Yes Subjective No acute events overnight. Patient examined at bedside. No new complaints, not in acute distress. Patient denies chest pain, sob, palpitations, n/v/d. Reports mild abdominal pain. Tele sinus in 100s. Vss, labs notable for resolving transaminitis. Diuretics dose adjusted. Objective Vital Signs Date Time Temp Pulse Resp B/P (MAP) Pulse Ox O2 Delivery O2 Flow Rate FiO2 02/16/25 13:59 16 02/16/25 08:27 119 118/59 (78) 02/16/25 06:00 96.6 96 Room Air 02/14/25 20:00 0.0 21 Result Diagram: 02/16/25 0505 02/16/25 0505 Physical Exam General: Generalized weakness, A&Ox 3, NAD HEENT: Normocephalic, PERRLA Neck: Supple, trachea midline, no JVD Chest: Clear to auscultation bilaterally Cardiovascular: RRR, S1&S2 GI: Mild tenderness in all four quadrants, negative rebound tenderness, distended Extremities: No cyanosis/clubbing/or edema FIELD SUPPORT SPECIALIST: CN II-XII intact, no focal deficits Musculoskeletal: No paraspinal muscle tenderness, no muscle spasm Skin: Warm and intact Coagulation Studies Laboratory Tests Test 02/11/25 02:39 02/15/25 07:43 Activated Partial Thromboplast Time 30 SECONDS (22-32) Prothrombin Time 13.1 SECONDS (9.0-12.0) H INR International Normalized Ratio 1.3 INR Coagulation Comments Problem\Assessment\Plan Problems/Diagnosis: (1) Acute cholecystitis # severe alcohol withdrawal # alcohol use disorder -scheduled Librium 02/12 DTs are improving vital signs are improving 02/13 the patient required two doses of 10 mg IV diazepam today- increase Librium to 75 mg q.i.d. 02/14 the patient is DTs and vital signs are improved with increased Librium dosing. 02/15 paracentesis not indicated, patient evaluated by Dr. Antoine, with recommendation to monitor for now # Cholecystitis- ruled out # Sepsis 2/2 CAP- presence on admission clinically undeterminable -02/15: continue Zosyn, start Zithromax # ascites # Hypoalbuminemia # acute alcoholic hepatitis On 40 mg of p.o. prednisone Monitor daily CMP Status post diagnostic paracentesis in the ED with 3 L were drained 02/12 liver function tests are improving- will likely require serial paracentesis 02/13 ascites is worsening, we will order a therapeutic paracentesis if the patient remains hospitalized on 02/15/2025 when angio nurse is available to assist Dr. Monzon 02/14 ascites continues to worsen- a therapeutic paracentesis is ordered for tomorrow # anemia of chronic disease # macrocytic anemia Transfuse if hemoglobin is below seven IV Protonix 40 mg b.i.d. Stool for Hemoccult 02/14 hemoglobin is improving continue monitor 02/15 Start Lasix, continue spironolactone. Para not indicated per Dr. Antoine who evaluated the patient. # hypokalemia On potassium replacement protocol Monitor daily labs Date of Service: Feb 16, 2025 Billing Provider: GREGORY HASTINGS Common Visit Codes: [id number] INP/OBS CARE(HIGH) GREGORY HASTINGS Feb 16, 2025 14:39
[2025-02-16 18:00] VITALS: BP 108/59; PULSE 89; RESP 16; TEMP 98.4; O2SAT 96
[2025-02-16 22:00] VITALS: BP 111/57; PULSE 99; RESP 16; TEMP 97.7; O2SAT 100
[2025-02-17 06:00] VITALS: BP 92/46; PULSE 94; RESP 18; TEMP 98; O2SAT 96
[2025-02-17 09:31] LABS: MEAN PLATELET VOLUME 7.1 FL (7.4-10.4); RED CELL DISTRIBUTION WIDTH 20.8 % (11.5-14.5)
[2025-02-17 09:48] LABS: CREATININE 0.62 MG/DL (0.40-0.90); TOTAL CARBON DIOXIDE 30.2 MMOL/L (24-32); eCRCL 126 ML/MIN; eGFR > 90 ML/MIN
[2025-02-17 09:51] LABS: LACTATE DEHYDROGENASE 160 U/L (81-234)
[2025-02-17 10:00] VITALS: BP 140/61; PULSE 133; RESP 19; TEMP 99.1; O2SAT 100
[2025-02-17 10:06] LABS: BANDS% (MANUAL) 5.0 % (0-10); EOSINOPHILS % (MANUAL) 1.0 % (0-6); LYMPHOCYTES % (MANUAL) 14.0 % (21-51); MONOCYTES % (MANUAL) 5.0 % (2-12); NEUTROPHILS % (MANUAL) 75.0 % (42-75); PLATELET ESTIMATE NORMAL
[2025-02-17 12:40] VITALS: BP 105/60; PULSE 132; RESP 16; O2SAT 99
--- NOTE | 2025-02-17 15:14 | PROGRESS NOTE ---
Daily Progress Note Providers to CC ~ Antibiotic Timeout Antibiotic Ordered?: Yes Subjective No acute events overnight. Patient examined at bedside. No new complaints, not in acute distress. Patient denies chest pain, sob, palpitations, n/v/d. Reports abdominal pain. Paracentesis not indicated at this time per IR Dr. Solomon who evaluated the patient. Tele sinus in 100s. Vss, labs notable for persistent leukocytosis. Continued on diuretics. Objective Vital Signs Date Time Temp Pulse Resp B/P (MAP) Pulse Ox O2 Delivery O2 Flow Rate FiO2 02/17/25 10:00 99.1 133 19 140/61 (87) 100 Room Air 02/14/25 20:00 0.0 21 Result Diagram: 02/17/25 0841 02/17/25 0841 Physical Exam General: Generalized weakness, A&Ox 3, NAD HEENT: Normocephalic, PERRLA Neck: Supple, trachea midline, no JVD Chest: Clear to auscultation bilaterally Cardiovascular: RRR, S1&S2 GI: Mild tenderness in all four quadrants, negative rebound tenderness, distended Extremities: No cyanosis/clubbing/or edema CLASSIFICATION AND TREATMENT DIRECTOR: CN II-XII intact, no focal deficits Musculoskeletal: No paraspinal muscle tenderness, no muscle spasm Skin: Warm and intact Coagulation Studies Laboratory Tests Test 02/11/25 02:39 02/15/25 07:43 Activated Partial Thromboplast Time 30 SECONDS (22-32) Prothrombin Time 13.1 SECONDS (9.0-12.0) H INR International Normalized Ratio 1.3 INR Coagulation Comments Problem\Assessment\Plan Problems/Diagnosis: (1) Acute cholecystitis # severe alcohol withdrawal # alcohol use disorder -scheduled Librium 02/12 DTs are improving vital signs are improving 02/13 the patient required two doses of 10 mg IV diazepam today- increase Librium to 75 mg q.i.d. 02/14 the patient is DTs and vital signs are improved with increased Librium dosing. 02/15 paracentesis not indicated, patient evaluated by Dr. Antoine, with recommendation to monitor for now 02/17 leukocytosis, follow labs continue abx, para not indicated at this time per IR Dr. Solomon # Cholecystitis- ruled out # Sepsis 2/2 CAP- presence on admission clinically undeterminable -02/15: continue Zosyn, start Zithromax # ascites # Hypoalbuminemia # acute alcoholic hepatitis On 40 mg of p.o. prednisone Monitor daily CMP Status post diagnostic paracentesis in the ED with 3 L were drained 02/12 liver function tests are improving- will likely require serial paracentesis 02/13 ascites is worsening, we will order a therapeutic paracentesis if the patient remains hospitalized on 02/15/2025 when angio nurse is available to assist Dr. Monzon 02/14 ascites continues to worsen- a therapeutic paracentesis is ordered for tomorrow # anemia of chronic disease # macrocytic anemia Transfuse if hemoglobin is below seven IV Protonix 40 mg b.i.d. Stool for Hemoccult 02/14 hemoglobin is improving continue monitor 02/15 Start Lasix, continue spironolactone. Para not indicated per Dr. Antoine who evaluated the patient. # hypokalemia On potassium replacement protocol Monitor daily labs Date of Service: Feb 17, 2025 Billing Provider: GREGORY HASTINGS Common Visit Codes: [id number] INP/OBS CARE(HIGH) GREGORY HASTINGS Feb 17, 2025 15:13
[2025-02-17] MEDS: HYDROcodone/acetaminophen 5mg/325mg tablet PO PRN (15:29)
[2025-02-17 18:00] VITALS: BP 104/56; PULSE 116; RESP 20; TEMP 97.8; O2SAT 97
--- NOTE | 2025-02-17 18:09 | PROGRESS NOTE ---
Progress Note - Angio Providers to CC ~ Angio Progress Note: US at bedside shows scant ascites, abd girth is mainly subQ edema etc. Dictated. NANCY DEL ROSARIO MD Feb 17, 2025 18:09
--- NOTE | 2025-02-17 18:54 | RADIOLOGY REPORT ---
Ultrasound abdomen portable HISTORY: Evaluate for ascites and paracentesis. Real-time ultrasound examination at bedside demonstrates only scant ascites. Therefore paracentesis could not be safely performed. IMPRESSION: Predominately subcutaneous edema changes. No evidence of significant ascites and therefore paracentesis procedure not indicated.
[2025-02-17 20:00] VITALS: RESP 20; O2SAT 97
[2025-02-17 22:00] VITALS: BP 96/50; PULSE 71; RESP 15; TEMP 97; O2SAT 98
[2025-02-18 05:31] LABS: MEAN PLATELET VOLUME 6.7 FL (7.4-10.4); RED CELL DISTRIBUTION WIDTH 20.8 % (11.5-14.5)
[2025-02-18 07:10] VITALS: BP 87/50; PULSE 91; RESP 17; TEMP 96.9; O2SAT 99
[2025-02-18 08:33] LABS: EOSINOPHILS % (MANUAL) 1.0 % (0-6); LYMPHOCYTES % (MANUAL) 12.0 % (21-51); MONOCYTES % (MANUAL) 5.0 % (2-12); NEUTROPHILS % (MANUAL) 82.0 % (42-75); PLATELET ESTIMATE NORMAL
[2025-02-18 11:07] VITALS: BP 108/60; PULSE 111; RESP 16; TEMP 97.6; O2SAT 99
[2025-02-18 11:32] VITALS: RESP 16; O2SAT 99
--- NOTE | 2025-02-18 14:03 | PROGRESS NOTE ---
Daily Progress Note Providers to CC ~ Antibiotic Timeout Antibiotic Ordered?: Yes Subjective No acute events overnight. Patient examined at bedside. No new complaints, not in acute distress. Patient denies chest pain, sob, palpitations, n/v/d. Reports abdominal pain. Vss, labs notable for persistent leukocytosis. ID consulted. Continued on diuretics and abx. Objective Vital Signs Date Time Temp Pulse Resp B/P (MAP) Pulse Ox O2 Delivery O2 Flow Rate FiO2 02/18/25 11:32 16 99 Room Air 02/18/25 11:07 97.6 111 108/60 (76) 02/17/25 20:00 0.0 21 Result Diagram: 02/18/25 0513 02/17/25 0841 Physical Exam General: Generalized weakness, A&Ox 3, NAD HEENT: Normocephalic, PERRLA Neck: Supple, trachea midline, no JVD Chest: Clear to auscultation bilaterally Cardiovascular: RRR, S1&S2 GI: Mild tenderness in all four quadrants, negative rebound tenderness, distended Extremities: No cyanosis/clubbing/or edema TRUCK DRIVER RUBBISH COLLECTOR: CN II-XII intact, no focal deficits Musculoskeletal: No paraspinal muscle tenderness, no muscle spasm Skin: Warm and intact Coagulation Studies Laboratory Tests Test 02/11/25 02:39 02/15/25 07:43 Activated Partial Thromboplast Time 30 SECONDS (22-32) Prothrombin Time 13.1 SECONDS (9.0-12.0) H INR International Normalized Ratio 1.3 INR Coagulation Comments Problem\Assessment\Plan Problems/Diagnosis: (1) Acute cholecystitis # severe alcohol withdrawal # alcohol use disorder -scheduled Librium 02/12 DTs are improving vital signs are improving 02/13 the patient required two doses of 10 mg IV diazepam today- increase Librium to 75 mg q.i.d. 02/14 the patient is DTs and vital signs are improved with increased Librium dosing. 02/15 paracentesis not indicated, patient evaluated by Dr. Antoine, with recommendation to monitor for now 02/17 leukocytosis, follow labs continue abx, para not indicated at this time per IR Dr. Solomon 02/[address] Lanier # Cholecystitis- ruled out # Sepsis 2/2 CAP- presence on admission clinically undeterminable -02/15: continue Zosyn, start Zithromax # ascites # Hypoalbuminemia # Acute alcoholic hepatitis On 40 mg of p.o. prednisone Monitor daily CMP Status post diagnostic paracentesis in the ED with 3 L were drained 02/12 liver function tests are improving- will likely require serial paracentesis 02/13 ascites is worsening, we will order a therapeutic paracentesis if the patient remains hospitalized on 02/15/2025 when angio nurse is available to assist Dr. Monzon 02/14 ascites continues to worsen- a therapeutic paracentesis is ordered for tomorrow # anemia of chronic disease # macrocytic anemia Transfuse if hemoglobin is below seven IV Protonix 40 mg b.i.d. Stool for Hemoccult 02/14 hemoglobin is improving continue monitor 02/15 Start Lasix, continue spironolactone. Para not indicated per Dr. Antoine who evaluated the patient. # hypokalemia On potassium replacement protocol Monitor daily labs Date of Service: Feb 18, 2025 Billing Provider: GREGORY HASTINGS Common Visit Codes: [id number] INP/OBS CARE(HIGH) GREGORY HASTINGS Feb 18, 2025 14:03
[2025-02-18 14:18] LABS: TOTAL CARBON DIOXIDE 26.5 MMOL/L (24-32)
[2025-02-18 14:30] LABS: CREATININE 0.73 MG/DL (0.40-0.90); eCRCL 107 ML/MIN; eGFR > 90 ML/MIN
[2025-02-18 18:00] VITALS: BP 106/62; PULSE 112; RESP 13; TEMP 97.9; O2SAT 95
[2025-02-18 22:00] VITALS: BP 114/59; PULSE 98; RESP 16; TEMP 97.9; O2SAT 94
[2025-02-19 06:00] VITALS: BP 118/59; PULSE 101; RESP 15; TEMP 97.2; O2SAT 97
[2025-02-19 06:01] LABS: MEAN PLATELET VOLUME 7.1 FL (7.4-10.4); RED CELL DISTRIBUTION WIDTH 21.0 % (11.5-14.5)
[2025-02-19 06:22] LABS: CREATININE 0.68 MG/DL (0.40-0.90); TOTAL CARBON DIOXIDE 31.3 MMOL/L (24-32); eCRCL 114 ML/MIN; eGFR > 90 ML/MIN
[2025-02-19 06:55] LABS: BANDS% (MANUAL) 3.0 % (0-10); EOSINOPHILS % (MANUAL) 1.0 % (0-6); LYMPHOCYTES % (MANUAL) 9.0 % (21-51); MONOCYTES % (MANUAL) 2.0 % (2-12); NEUTROPHILS % (MANUAL) 85.0 % (42-75)
[2025-02-19 06:56] LABS: PLATELET ESTIMATE NORMAL
[2025-02-19 08:00] VITALS: RESP 22; O2SAT 97
[2025-02-19] MEDS: chlordiazePOXIDE 5mg capsule PO SCH (09:30)
[2025-02-19 10:00] VITALS: BP 102/63; PULSE 91; RESP 20; TEMP 97.8; O2SAT 96
[2025-02-19 10:35] VITALS: BP 111/67; PULSE 113
[2025-02-19] MEDS: midodrine 5mg tablet PO ONE (13:14)
[2025-02-19] MEDS: ringers solution, lacted 1,000 ML IV ONE ×2 (13:14→14:45)
--- NOTE | 2025-02-19 15:07 | RADIOLOGY REPORT ---
CLINICAL INFORMATION: Dropping oxygen saturation and increased respiratory rate. TECHNIQUE: Single AP portable chest radiograph was obtained. COMPARISON: DI CHEST,SINGLE VIEW on DOS: 02/15/25 FINDINGS: Lungs: Low lung volumes with bibasilar atelectasis. No focal consolidation, pneumothorax, or pleural effusion. Cardiac: Heart size is within normal limits. Pulmonary vasculature: Unremarkable. Mediastinum/brooke: Unremarkable. Bones: No acute osseous abnormality identified. Other: No other significant findings. IMPRESSION: Low lung volumes with bibasilar atelectasis. No evidence of acute disease in the chest.
--- NOTE | 2025-02-19 16:36 | PROGRESS NOTE ---
Daily Progress Note Providers to CC ~ Antibiotic Timeout Antibiotic Ordered?: Yes Subjective No acute events overnight. Patient examined at bedside. No new complaints, not in acute distress. Patient denies chest pain, sob, palpitations, n/v/d. Vss, labs notable for persistent leukocytosis likely secondary to hepatocellular injury. INR 1.3, PLT wnl, no hypoglycemia, afebrile. Hypotensive on diuretics and carvedilol, which are held. Started steroid, isotonic fluids, midodrine. Objective Vital Signs Date Time Temp Pulse Resp B/P (MAP) Pulse Ox O2 Delivery O2 Flow Rate FiO2 02/19/25 10:35 113 111/67 (82) 02/19/25 10:00 97.8 20 96 Room Air 02/18/25 08:00 0.0 21 Result Diagram: 02/19/25 0458 02/19/25 045 Physical Exam General: Generalized weakness, A&Ox 3, NAD HEENT: Normocephalic, PERRLA Neck: Supple, trachea midline, no JVD Chest: Clear to auscultation bilaterally Cardiovascular: RRR, S1&S2 GI: Mild tenderness in all four quadrants, negative rebound tenderness Extremities: No cyanosis/clubbing/or edema HEARING THERAPY DIRECTOR: CN II-XII intact, no focal deficits Musculoskeletal: No paraspinal muscle tenderness, no muscle spasm Skin: Warm and intact Coagulation Studies Laboratory Tests Test 02/11/25 02:39 02/15/25 07:43 Activated Partial Thromboplast Time 30 SECONDS (22-32) Prothrombin Time 13.1 SECONDS (9.0-12.0) H INR International Normalized Ratio 1.3 INR Coagulation Comments Problem\Assessment\Plan Problems/Diagnosis: (1) Acute cholecystitis # severe alcohol withdrawal # alcohol use disorder -scheduled Librium 02/12 DTs are improving vital signs are improving 02/13 the patient required two doses of 10 mg IV diazepam today- increase Librium to 75 mg q.i.d. 02/14 the patient is DTs and vital signs are improved with increased Librium dosing. 02/15 paracentesis not indicated, patient evaluated by Dr. Antoine, with recommendation to monitor for now 02/17 leukocytosis, follow labs continue abx, para not indicated at this time per IR Dr. Solomon 02/[address] Lanier 02/19 Hypotensive on diuretics and carvedilol, which are held. Started steroid, isotonic fluids, midodrine. INR 1.3, PLT wnl, no hypoglycemia, afebrile. # Cholecystitis- ruled out # Sepsis 2/2 CAP- presence on admission clinically undeterminable -02/15: continue Zosyn, start Zithromax # ascites # Hypoalbuminemia # Acute alcoholic hepatitis On 40 mg of p.o. prednisone Monitor daily CMP Status post diagnostic paracentesis in the ED with 3 L were drained 02/12 liver function tests are improving- will likely require serial paracentesis 02/13 ascites is worsening, we will order a therapeutic paracentesis if the patient remains hospitalized on 02/15/2025 when angio nurse is available to assist Dr. Monzon 02/14 ascites continues to worsen- a therapeutic paracentesis is ordered for tomorrow # anemia of chronic disease # macrocytic anemia Transfuse if hemoglobin is below seven IV Protonix 40 mg b.i.d. Stool for Hemoccult 02/14 hemoglobin is improving continue monitor 02/15 Start Lasix, continue spironolactone. Para not indicated per Dr. Antoine who evaluated the patient. # hypokalemia On potassium replacement protocol Monitor daily labs Date of Service: Feb 19, 2025 Billing Provider: GREGORY HASTINGS Common Visit Codes: [id number] INP/OBS CARE(HIGH) GREGORY HASTINGS Feb 19, 2025 16:36
[2025-02-19 16:52] LABS: LEUKOCYTE ESTERASE ,URINE SMALL (Neg); NITRITES, URINE NEGATIVE (Neg); OCCULT BLOOD,URINE LARGE (Neg)
[2025-02-19 16:56] LABS: UA COLLECTION TYPE CLN CATCH MIDSTREAM
[2025-02-19 16:57] LABS: MUCUS STRANDS NONE SEEN /LPF (Neg); SQUAMOUS EPITHELIAL CELL,UR MODERATE /LPF (FEW)
[2025-02-19] MEDS: midodrine 5mg tablet PO SCH (16:58)
[2025-02-19 18:30] VITALS: BP 92/55; PULSE 96; RESP 16; TEMP 97.9; O2SAT 96
[2025-02-19 22:00] VITALS: BP 109/63; PULSE 84; RESP 15; TEMP 98; O2SAT 94
[2025-02-20 06:00] VITALS: BP_SYST 111; BP_SYST 188; BP_DIAS 65; BP_DIAS 91; PULSE 64; PULSE 80; RESP 14; RESP 18; TEMP 96.9; TEMP 98.1; O2SAT 92; O2SAT 98
[2025-02-20 06:02] LABS: MEAN PLATELET VOLUME 6.8 FL (7.4-10.4); RED CELL DISTRIBUTION WIDTH 21.1 % (11.5-14.5)
[2025-02-20 06:28] LABS: CREATININE 0.61 MG/DL (0.40-0.90); TOTAL CARBON DIOXIDE 29.2 MMOL/L (24-32); eCRCL 128 ML/MIN; eGFR > 90 ML/MIN
[2025-02-20 07:02] LABS: BANDS% (MANUAL) 4.0 % (0-10); LYMPHOCYTES % (MANUAL) 3.0 % (21-51); MONOCYTES % (MANUAL) 2.0 % (2-12); NEUTROPHILS % (MANUAL) 91.0 % (42-75); PLATELET ESTIMATE NORMAL
[2025-02-20 08:00] VITALS: RESP 22; O2SAT 97
[2025-02-20 10:00] VITALS: BP 102/58; PULSE 93; RESP 22; TEMP 97.1; O2SAT 98
--- NOTE | 2025-02-20 13:09 | PROGRESS NOTE ---
Daily Progress Note Providers to CC ~ Antibiotic Timeout Antibiotic Ordered?: Yes Subjective No acute events overnight. Patient examined at bedside. No new complaints, not in acute distress. Patient denies chest pain, sob, palpitations, n/v/d, dysuria. Vss, labs notable for persistent leukocytosis likely secondary to hepatocellular injury. INR 1.3, PLT wnl, no hypoglycemia, afebrile. Vss, on steroid, midodrine, diuretics held. Objective Vital Signs Date Time Temp Pulse Resp B/P (MAP) Pulse Ox O2 Delivery O2 Flow Rate FiO2 02/20/25 10:00 97.1 93 22 102/58 (73) 98 Room Air 02/18/25 08:00 0.0 21 Result Diagram: 02/20/25 0505 02/20/25 0505 Physical Exam General: Generalized weakness, A&Ox 3, NAD HEENT: Normocephalic, PERRLA Neck: Supple, trachea midline, no JVD Chest: Clear to auscultation bilaterally Cardiovascular: RRR, S1&S2 GI: Mild tenderness in all four quadrants, negative rebound tenderness Extremities: No cyanosis/clubbing/or edema PIPE OUT WORKER: CN II-XII intact, no focal deficits Musculoskeletal: No paraspinal muscle tenderness, no muscle spasm Skin: Warm and intact Coagulation Studies Laboratory Tests Test 02/11/25 02:39 02/15/25 07:43 Activated Partial Thromboplast Time 30 SECONDS (22-32) Prothrombin Time 13.1 SECONDS (9.0-12.0) H INR International Normalized Ratio 1.3 INR Coagulation Comments Problem\Assessment\Plan Problems/Diagnosis: (1) Acute cholecystitis # severe alcohol withdrawal # alcohol use disorder -scheduled Librium 02/12 DTs are improving vital signs are improving 02/13 the patient required two doses of 10 mg IV diazepam today- increase Librium to 75 mg q.i.d. 02/14 the patient is DTs and vital signs are improved with increased Librium dosing. 02/15 paracentesis not indicated, patient evaluated by Dr. Antoine, with recommendation to monitor for now 02/17 leukocytosis, follow labs continue abx, para not indicated at this time per IR Dr. Solomon 02/[address] Lanier 02/19 Hypotensive on diuretics and carvedilol, which are held. Started steroid, isotonic fluids, midodrine. INR 1.3, PLT wnl, no hypoglycemia, afebrile. # Cholecystitis- ruled out # Sepsis 2/2 CAP- presence on admission clinically undeterminable -02/15: continue Zosyn, start Zithromax # ascites # Hypoalbuminemia # Acute alcoholic hepatitis On 40 mg of p.o. prednisone Monitor daily CMP Status post diagnostic paracentesis in the ED with 3 L were drained 02/12 liver function tests are improving- will likely require serial paracentesis 02/13 ascites is worsening, we will order a therapeutic paracentesis if the patient remains hospitalized on 02/15/2025 when angio nurse is available to assist Dr. Monzon 02/14 ascites continues to worsen- a therapeutic paracentesis is ordered for tomorrow # anemia of chronic disease # macrocytic anemia Transfuse if hemoglobin is below seven IV Protonix 40 mg b.i.d. Stool for Hemoccult 02/14 hemoglobin is improving continue monitor 02/15 Start Lasix, continue spironolactone. Para not indicated per Dr. Antoine who evaluated the patient. # hypokalemia On potassium replacement protocol Monitor daily labs Date of Service: Feb 20, 2025 Billing Provider: GREGORY HASTINGS Common Visit Codes: [id number] INP/OBS CARE(HIGH) GREGORY HASTINGS Feb 20, 2025 13:09
--- NOTE | 2025-02-20 15:57 | CONSULTATION REPORT ---
Consult Consult Consultation Reason for Consult: Leukocytosis Consulting Provider: Joseph Garvey Antibiotic Days: Zosyn 9, Azithro 4 Lines: PIV Micro: 02/10 Blood- negative 02/11 Peritoneal- negative 02/14 Blood- negative 02/19 Urine- GPC HPI: Patient is a 35 year old female with past medical history of alcoholism who presented to [facility] on 02/10 due to abdominal distension and yellowing of the skin. She underwent a paracentesis in the ER with 3L out and was admitted for further workup of alcoholic hepatitis. She was started on 40 mg of Prednisone early in the hospital stay. Other infections have been investigated and not found; nonetheless, she has significant leukocytosis for which ID is asked to consult. On today's exam, patient is non-toxic appearing. She denies any cough, congestion, sore throat, nausea, diarrhea, dysuria. She does have some dyspnea after her fluid builds up and bruising of her skin. Past Medical/Surgical History: Ovarian Cyst, Colitis Current Medications Medications (Trade) Dose Ordered Sig/Dick Route PRN Reason Start Time Stop Time Status Last Admin Dose Admin Thiamine HCl (thiamine inj.) 100 mg ONCE ONCE IV 02/10/25 19:35 02/10/25 19:36 DC 02/10/25 19:52 100 MG Sodium Chloride 1,000 ml @ 1,000 mls/hr ONCE ONCE IV 02/10/25 19:35 02/10/25 20:34 DC 02/10/25 19:49 1,000 MLS/HR Piperacillin/ Tazobactam/ Dextrose 50 ml @ 100 mls/hr ONCE ONCE IV 02/10/25 21:35 02/10/25 22:04 DC 02/10/25 21:56 100 MLS/HR Morphine Sulfate (morphine inj.) 4 mg ONCE ONCE IV 02/10/25 22:00 02/10/25 22:01 DC 02/10/25 22:18 4 MG Acetaminophen/ Hydrocodone Bitart ([place] 5/325mg tablet) 1 tab Q4H PRN PO MODERATE PAIN 4-6 02/11/25 00:35 02/18/25 09:28 1 TAB Acetaminophen/ Hydrocodone Bitart ([place] 10/325mg tab) 1 tab Q4H PRN PO SEVERE PAIN 7-10 02/11/25 00:35 02/16/25 22:44 1 TAB Morphine Sulfate (morphine inj.) 2 mg Q4H PRN IV severe pain (7-10) 02/11/25 00:35 02/17/25 01:35 2 MG Docusate Sodium (Colace capsule) 100 mg BID PO 02/11/25 08:00 02/19/25 09:29 100 MG Sodium Chloride 1,000 ml @ 100 mls/hr Q10H IV 02/11/25 00:35 02/13/25 15:28 DC 02/13/25 13:43 100 MLS/HR Potassium Chloride (K-DUR tablet) 20 meq Q4H PRN PO Potassium 3.1-3.4 02/11/25 00:35 02/14/25 00:34 DC 02/13/25 19:52 20 MEQ Thiamine HCl (thiamine inj.) 200 mg TID IV 02/11/25 08:00 02/14/25 07:59 DC 02/14/25 08:08 200 MG Folic Acid (folic acid inj.) 1 mg DAILY IV 02/11/25 08:00 02/14/25 14:00 DC 02/14/25 10:41 1 MG Thiamine HCl (thiamine tablet) 100 mg DAILY PO 02/15/25 08:00 02/20/25 08:54 100 MG Folic Acid (folic acid tablet) 1 mg DAILY PO 02/15/25 08:00 02/20/25 08:54 1 MG Piperacillin/ Tazobactam/ Dextrose 100 ml @ 25 mls/hr Q8H IV 02/11/25 08:00 02/20/25 10:10 25 MLS/HR Pantoprazole Sodium (Protonix) 40 mg BKF PO 02/11/25 07:30 02/11/25 20:04 DC 02/11/25 07:11 40 MG Albumin Human (albumin (human) 25% 100ml IV) 200 ml ONCE ONCE IV 02/11/25 02:40 02/11/25 02:41 DC 02/11/25 03:03 200 ML Diazepam (Valium inj) 5 mg Q1H PRN IV alcohol withdrawal 02/11/25 03:05 02/11/25 20:48 5 MG Prednisone (predniSONE tablet) 40 mg Q24H PO 02/11/25 08:00 02/20/25 08:54 40 MG Lorazepam (Ativan tablet) 1 mg Q15MIN PRN PO alcohol withdrawal 02/11/25 08:55 02/17/25 09:35 1 MG Diazepam (Valium inj) 10 mg ONCE ONCE IV 02/11/25 08:55 02/11/25 09:02 DC 02/11/25 09:30 10 MG Chlordiazepoxide HCl (Librium capsule) 50 mg Q6H PO 02/11/25 11:25 02/13/25 17:38 DC 02/13/25 13:46 50 MG Pantoprazole Sodium (Protonix 40mg IV) 40 mg Q12H IV 02/11/25 20:21 02/20/25 08:54 40 MG Diazepam (Valium inj) 10 mg ONCE ONCE IV 02/13/25 08:50 02/13/25 08:52 DC 02/13/25 09:05 10 MG Diazepam (Valium inj) 10 mg ONCE ONCE IV 02/13/25 11:25 02/13/25 11:27 DC 02/13/25 11:37 10 MG Spironolactone (Aldactone tablet) 25 mg ONCE ONCE PO 02/13/25 15:30 02/13/25 15:31 DC 02/13/25 15:52 25 MG Chlordiazepoxide HCl (Librium capsule) 75 mg Q6H PO 02/13/25 20:00 02/18/25 07:34 DC 02/18/25 02:04 75 MG Potassium Chloride (K-DUR tablet) 20 meq Q4H PRN PO potassium 3.1 - 3.4 02/14/25 08:40 02/17/25 08:39 DC 02/14/25 19:48 20 MEQ Lactose (Ensure Enlive - 237ML) 1 can TIDWM PO 02/14/25 18:00 02/20/25 13:25 1 CAN Furosemide (Lasix inj) 20 mg DAILY IV 02/15/25 08:00 02/16/25 07:16 DC 02/15/25 07:48 20 MG Spironolactone (Aldactone tablet) 50 mg DAILY@0830 PO 02/15/25 08:30 02/16/25 07:16 DC 02/15/25 07:49 50 MG Azithromycin 250 ml @ 250 mls/hr ONCE ONCE IV 02/15/25 11:15 02/15/25 12:14 DC 02/15/25 13:10 250 MLS/HR Azithromycin 250 ml @ 250 mls/hr Q24H IV 02/16/25 08:00 02/20/25 08:54 250 MLS/HR Furosemide (Lasix inj) 40 mg DAILY IV 02/16/25 08:00 02/18/25 07:16 DC 02/17/25 09:34 40 MG Spironolactone (Aldactone tablet) 100 mg DAILY@0830 PO 02/16/25 08:30 02/20/25 13:23 DC 02/19/25 09:30 100 MG Carvedilol (Coreg tablet) 3.125 mg STAT ONCE PO 02/17/25 15:10 02/17/25 15:27 DC 02/17/25 15:33 3.125 MG Furosemide (Lasix inj) 40 mg Q12H IV 02/18/25 08:00 Hold 02/19/25 09:27 40 MG Chlordiazepoxide HCl (Librium capsule) 25 mg Q8H PO 02/18/25 08:00 02/19/25 07:59 DC 02/19/25 00:14 25 MG Chlordiazepoxide HCl (Librium capsule) 25 mg Q12H PO 02/19/25 08:00 02/20/25 07:59 DC 02/19/25 20:04 25 MG Midodrine (ProAmatine tablet) 10 mg Q8H PO 02/19/25 00:00 02/20/25 08:54 10 MG Lactated Ringer's 1,000 ml @ 1,000 mls/hr ONCE ONCE IV 02/19/25 12:45 02/19/25 13:44 DC 02/19/25 13:14 1,000 MLS/HR Midodrine (ProAmatine tablet) 10 mg ONCE ONCE PO 02/19/25 12:45 02/19/25 12:46 DC 02/19/25 13:14 10 MG Lactated Ringer's 1,000 ml @ 1,000 mls/hr ONCE ONCE IV 02/19/25 14:45 02/19/25 15:44 DC 02/19/25 14:45 1,000 MLS/HR Methylprednisolone Sodium Succinate (SoluMEDROL 125mg inj) 62.5 mg Q12H IV 02/19/25 20:00 02/20/25 07:32 DC 02/19/25 20:04 62.5 MG Methylprednisolone Sodium Succinate (SoluMEDROL 125mg inj) 62.5 mg ONCE ONCE IV 02/19/25 16:20 02/19/25 16:28 DC 02/19/25 16:57 62.5 MG Spironolactone (Aldactone tablet) 50 mg ONCE ONCE PO 02/20/25 13:10 02/20/25 13:16 DC 02/20/25 13:25 50 MG Social History: significant ETOH use. 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 She denies any risk factors for HIV/Hepatitis Family History: Noncontributory ROS: As in HPI, otherwise negative Objective: Vitals: Afebrile, 80, 14, 111/65, 92% on RA General: A&Ox3, NAD HEENT: NC/AT, icterus, no oral lesions CV: Regular Resp: Clear anteriorly Abd: Distended but soft and non-tender Ext: Lots of bruising Skin: Jaundice Lines: PIV ok Laboratory Tests 02/20/25 05:05 02/10 CT 1. Hepatomegaly with hepatic steatosis in appearance of third-spacing as manifested by pericholecystic/intramural edema and ascites. 2. Correlate with clinical exam and laboratory values for liver dysfunction 3. Colon is diffusely decompressed with submucosal fat deposition, which may be exaggerated secondary to decompression however chronic inflammation not excluded. 02/19 CXR Low lung volumes with bibasilar atelectasis. No evidence of acute disease in the chest. Assessment: // Leukocytosis - likely due to alcoholic hepatitis + steroids. She is non- toxic appearing without any localizing symptoms for infection. Blood cultures, CXR negative // Alcoholic hepatitis // Antibiotic Allergies: none known // MRSA Screen: negative Plan: - DC antibiotics and observe off of therapy - She needs to be linked to care with [facility] hepatology - Check HIV, HCV screens even though she denies risk factors - Thank you for the consult, will continue to follow LAUREN SANCHEZ DO Feb 20, 2025 15:57
[2025-02-20] MEDS ORDERED: oxyCODONE IR 5mg (immed. release) tablet PO PRN (16:10)
[2025-02-20 18:00] VITALS: BP 98/54; PULSE 93; RESP 18; TEMP 97.5; O2SAT 96
[2025-02-20 18:06] LABS: HIV ANTIBODY 1&2 RAPID NON-REACTIVE (Neg)
[2025-02-20 20:00] VITALS: RESP 18; O2SAT 96
[2025-02-20] MEDS: heparin, porcine 5000 units/ml vial SQ SCH (20:28)
[2025-02-20 22:00] VITALS: BP 99/57; PULSE 82; RESP 16; TEMP 97.1; O2SAT 98
[2025-02-21 05:45] LABS: MEAN PLATELET VOLUME 6.9 FL (7.4-10.4); RED CELL DISTRIBUTION WIDTH 21.1 % (11.5-14.5)
[2025-02-21 05:53] LABS: INR 1.3 INR
[2025-02-21 06:00] VITALS: BP 103/55; PULSE 100; RESP 16; TEMP 97.7; O2SAT 98
[2025-02-21 06:04] LABS: CREATININE 0.65 MG/DL (0.40-0.90); TOTAL CARBON DIOXIDE 28.4 MMOL/L (24-32); eCRCL 120 ML/MIN; eGFR > 90 ML/MIN
[2025-02-21 06:15] LABS: EOSINOPHILS % (MANUAL) 1.0 % (0-6); LARGE PLATELETS FEW; LYMPHOCYTES % (MANUAL) 7.0 % (21-51); MONOCYTES % (MANUAL) 2.0 % (2-12); NEUTROPHILS % (MANUAL) 90.0 % (42-75); PLATELET ESTIMATE NORMAL
[2025-02-21 08:00] VITALS: BP_SYST 115; BP_SYST 117; BP_SYST 95; BP_DIAS 52; BP_DIAS 67; BP_DIAS 69; PULSE 110; PULSE 113; RESP 20; O2SAT 96
[2025-02-21 10:00] VITALS: BP 101/57; PULSE 97; RESP 16; TEMP 97.9; O2SAT 98
[2025-02-21] MEDS ORDERED: FOLI1TAB27 PO (13:07)
[2025-02-21] MEDS ORDERED: thiamine tablet PO (13:07)
[2025-02-21] MEDS ORDERED: MIDO5TAB4 PO (13:07)
--- NOTE | 2025-02-21 15:25 | DISCHARGE SUMMARY ---
Discharge Summary Providers to CC ~ Discharge Summary Admission Diagnosis: Acute alcoholic hepatitis, DTs Hospital Course DATE OF ADMISSION: 02/11/25 DATE OF DISCHARGE: 02/21/25 Discharge Diagnosis\\Comment: Severe alcohol withdrawal Alcohol intoxication Chronic alcoholism Alcoholic hepatitis- POA Sepsis 2/2 CAP- presence on admission clinically undeterminable Ascites Hypoalbuminemia Acute alcoholic hepatitis Anemia, macrocytic Hypokalemia Acute cholecystitis- ruled out Operations\\Procedures: Paracentesis Consultants: Noni Reyes Dr. Complications: None Condition on DC: Stable New Medications: Folic Acid* (Folic Acid*) Y Tab 1 MG PO DAILY for 90 Days, #90 TAB Midodrine HCl (Midodrine HCl) 5 Mg Tablet 2 TAB PO Q8H for 30 Days, #180 TAB [thiamine tablet] () 100 MG TABLET 100 MG PO DAILY for 90 Days, #90 Continued Medications: Acetaminophen (Tylenol Extra Strength) 500 Mg Tablet 2 TAB PO BID PRN for pain or fever, TAB Ibuprofen (Ibuprofen) 800 Mg Tablet 1 TAB PO DAILY for pain, TAB 0 Refills Simethicone (Gas-X) 125 Mg Capsule 1 CAP PO Q8H, CAP 0 Refills Discontinued Medications: Diphenhydramine HCl (Sleep Aid) 50 Mg Capsule 1 CAP PO HS, CAP 0 Refills Discharge Summary: History of Present Illness From H&P: "This is a 35-year-old female with past medical history alcohol use disorder (1300 mL of vodka a day) who came to the ER with complaints of abdominal pain and bloating since three weeks. She explained that all of these symptoms started after she got back on her alcohol consumption. She experienced progressive abdominal bloating in the past 3 weeks such that her abdomen is twice the size now associated with bilateral pitting pedal edema. Associated with abdominal pain in the epigastric and right upper quadrant region. She rates the pain as 8/10, dull ache, nonradiating, associated with medication, no aggravating factors with food consumption. She had to change her diet from solid to liquid in view of progressive distention and nausea. She has also noticed yellowish discoloration of her sclera and skin since the past 3 weeks. No symptoms of vomiting, diarrhea/constipation, change in the color of the stools, no urinary symptoms, not on any control, no weight loss." Hospital Course Diagnostic findings were notable for elevated serum transaminitis with elevated t.bili, hyponatremia, elevated lactic acid, elevated procal, leukocytosis, ultrasound of abdomen with no evidence of biliary stones/sludge and nondistended gallbladder, CT abdomen/pelvis revealing hepatomegaly, diffuse hepatic steatosis, ascites, and clinical findings of DTs. Pertinent negative findings were INR 1.3, normal platelet count, no hypoglycemia, urinalysis negative for UTI. Patient underwent paracentesis with approximately 3 L of ascitic fluid taken out. Patient was treated with benzodiazepines, thiamine, folic acid, empirical antibiotics, steroid. Patient was also initially treated with intravenous fluids which was transitioned to diuretics. Due to persistently uptrending white count, case was consulted with ID Dr. Lanier with recommendation to hold steroid and antibiotics with index of suspicion for leukocytosis as cause of hepatocellular injury. UA positive for UTI but patient is completely asymptomatic, hence no treatment is rendered at this time. Patient did not experience further complications throughout the entire hospital stay and remained clinically and hemodynamically. Patient was seen and examined on the day of discharge. On day of discharge, vss, afebrile, and labs notable for downtrending whit count off steroid and antibiotics. Blood cultures resulted negative. Hepatitis panel, HIV, HCV pending result until the day of discharge. All labs, diagnostic workups, discharge plan discussed with patient in details during visit before discharge. All questions and concerns answered to the best of my professional knowledge. Patient is to be discharged to home to self and to follow-up with PCP and outpatient dry cell assembly supervisor within 2 weeks. Patient is referred to dry cell assembly supervisor upon discharge. Physical Exam General: A&Ox 3, NAD HEENT: Normocephalic, PERRLA Neck: Supple, trachea midline, no JVD Chest: Clear to auscultation bilaterally Cardiovascular: RRR, S1&S2 GI: Mildly distended, negative rebound tenderness Extremities: No cyanosis/clubbing/or edema APPAREL CUTTER: CN II-XII intact, no focal deficits Musculoskeletal: No paraspinal muscle tenderness, no muscle spasm Skin: Warm and intact *Problems/Diagnosis: (1) Alcoholic hepatitis Status: Acute (2) Alcohol abuse Status: Acute Total Time Spent on D/C: > 30 Minutes Date of Service: Feb 21, 2025 Billing Provider: GREGORY HASTINGS Common Visit Codes: [id number] DISCH DAY >30min GREGORY HASTINGS Feb 21, 2025 15:25
[2025-02-21] MEDS ORDERED: THIA100T70 PO (17:48)
[2025-02-22 08:26] LABS: AFP,SERUM, TUMOR MARKER 5.1 ng/mL (0.0-6.4)
[2025-02-22 09:12] LABS: HBSAG SCREEN Negative (Negative); HEP A AB, IGM Negative (Negative); HEP B CORE AB, IGM Negative (Negative); HEPATITIS C VIRUS ANTIBODY Non Reactive (Non Reactive)
== END 2025-02-21 18:27 | disposition home or self-care (01) | DRG 871 ==
LOC: ER 18:37 → UNDOADMIN 02-11 00:38 → ED HOLD 02-11 00:38 → EDBEDREQTM 02-11 01:34 → EDBEDREQ 02-11 01:34 → ORTHO 4S 02-11 02:54 → ED HOLD 02-11 02:54
PROVIDERS: ADMIT Internal Medicine Pulmonary Disease; ATTEND Family Medicine
PROC: BW211ZZ Computerized Tomography (CT Scan) of Abdomen and Pelvis using Low Osmolar Contrast (ICD-10-PCS; 2025-02-10)
PROC: 0W9G3ZZ Drainage of Peritoneal Cavity, Percutaneous Approach (ICD-10-PCS; principal; 2025-02-17)
DX: A41.9 Sepsis, unspecified organism (principal); J18.9 Pneumonia, unspecified organism; E87.1 Hypo-osmolality and hyponatremia; N39.0 Urinary tract infection, site not specified; F10.239 Alcohol dependence with withdrawal, unspecified; D53.9 Nutritional anemia, unspecified; E87.6 Hypokalemia; K70.11 Alcoholic hepatitis with ascites; F10.229 Alcohol dependence with intoxication, unspecified
CPT/HCPCS: 36415; 71045; 74176; 76700; 76705; 80053; 80061; 80074; 80320; 80329; 81001; 81025; 82103; 82140; 82248; 82272; 82948; 83036; 83540; 83550; 83605; 83615; 83690; 83735; 83930; 83935; 84132; 84145; 85007; 85008; 85025; 85610; 85651; 85730; 86140; 86703; 86704; 86705; 87040; 87070; 87077; 87081; 87088; 87186; 87340; 89051; 93005; 96361; 96365; 96375; 97116; 97161; 97530; 99285; A6449; C1729; G0378; J0456; J1644; J1938; J2270; J2470; J2543; J2919; J3360; J3411; J3490; J7030; J7120; J7512; P9047